=== PATIENT | female | born 1955 | race Caucasian/White ===

== ENCOUNTER 2016-07-03 16:10 | Emergency (ER) | payer MEDICAID ==
--- NOTE | 2016-07-03 16:16 | NUR ---
PT CALLED TO TRIAGE, PT REFUSED TO BE SEEN
== END 2016-07-03 16:34 | disposition home or self-care (01) ==
LOC: ER 16:12
DX: Z53.21 Procedure and treatment not carried out due to patient leaving prior to being seen by health care provider (principal)

== ENCOUNTER → 2016-07-20 | Emergency (ER) | payer MEDICAID ==
[~2016-07-20] VITALS: Ht 162.6 cm; Wt 72.6 kg
[~2016-07-20] MED LIST: BACITRACIN ZINC OINT PACKET 1 EA PACKET TP ONE
[2016-07-20 14:54] VITALS: BP 122/71
== END | disposition home or self-care (01) ==
LOC: ER 14:51
DX: S09.90XA Unspecified injury of head, initial encounter (principal); S00.81XA Abrasion of other part of head, initial encounter; W18.39XA Other fall on same level, initial encounter; Y93.89 Activity, other specified; Y92.89 Other specified places as the place of occurrence of the external cause; Y99.9 Unspecified external cause status
CPT/HCPCS: A4606; Z7502; Z7610

== ENCOUNTER 2021-08-03 17:45 | Emergency (ER) | payer MEDICAID ==
[~2021-08-03] VITALS: Ht 165.1 cm; Wt 68.9 kg
--- NOTE | 2021-08-03 18:00 | NUR ---
BIBS C/O WORSENING FACIAL PAIN/NUMBNESS/SPASM/TINGLING x 1YR. AMBULATORY, AAOX4
--- NOTE | 2021-08-03 18:10 | NUR ---
AT BED SIDE
[2021-08-03] MEDS ORDERED: NAPR-1164 PO (18:25)
--- NOTE | 2021-08-03 18:30 | NUR ---
Patient discharged to home in stable condition. Written and verbal after care instructions given. Patient verbalizes understanding of instruction.
[2021-08-03 19:23] VITALS: BP 121/75
== END 2021-08-03 18:30 | disposition home or self-care (01) ==
LOC: ER 17:48
DX: R51.9 Headache, unspecified (principal); F32.A Depression, unspecified; E78.00 Pure hypercholesterolemia, unspecified; G47.00 Insomnia, unspecified